=== PATIENT | female | born 1955 | race Caucasian/White ===

== ENCOUNTER 2017-12-15 20:11 | Inpatient (IN) ==
[2017-12-15] MEDS ORDERED: ALBUTEROL/IPRATROPIUM 3 ML NEB RESP TX STA (20:55)
[2017-12-15] MEDS ORDERED: SODIUM CHLORIDE 0.9% 1,000 ML IV STA (20:55)
[2017-12-15 21:08] LABS: Basophils # 0.1 10*3/uL (0.0-0.2); Basophils % 0.6 % (0.0-0.8); Eosinophils # 0.1 10*3/uL (0.0-0.87); Eosinophils % 0.5 % (0.00-10.9); Hematocrit 39.4 VOL% (35.7-47.0); Hemoglobin 14.1 GM/DL (12.0-16.0); Immature Granulocytes % 0.5 %; Immature Granulocytes Absolute 0.06 #; Lymphocytes # 1.9 10*3/uL (1.4-4.0); Lymphocytes % 14.5 % (21.3-54.2); Mean Corpuscular HGB Conc 35.8 GM/DL (32-36); Mean Corpuscular Hemoglobin 31 PG (27-34); Mean Corpuscular Volume 85.5 FL (87-102); Mean Platelet Volume 10.4 FL (9.6-12.0); Monocytes # 0.9 10*3/uL (0.11-0.8); Monocytes % 6.9 % (1.7-12.7); Neutrophils # 10.2 10*3/uL (1.4-7.4); Platelet Count 408 T/CUMM (130-400); Red Blood Count 4.61 MC/CUMM (3.8-5.5); Red Cell Distribution Width 11.8 % (9.3-17.3); White Blood Count 13.2 T/CUMM (4-12)
[2017-12-15 21:15] LABS: Amorphous Crystals,Urine Occasional /HPF (Few); Apearance,Urine CLOUDY (Clear); Bacteria,Urine Occasional /HPF (Few); Bilirubin,Urine Small mg/dL (Negative); Blood, Urine Small mg/dL (Negative); Glucose,Urine (UA) Negative (Negative); Ketones,Urine 5 mg/dL (Negative); Mucus,Urine Many /LPF (Occasional); Nitrite,Urine Negative (Negative); Protein,Urine 100 MG/DL; RBC,Urine 4 /HPF (0-4); Squamous Epithelial Cell,Urine Many /HPF (0-10); Urine Color Yellow (Yellow); Urine Specific Gravity 1.029 (1.001-1.035); WBC,Urine 6 /HPF (0-6)
[2017-12-15 21:28] LABS: Albumin 3.2 G/DL (3.4-5.0); Bilirubin,Total 0.6 MG/DL (0.2-1.0); Calcium 8.9 MG/DL (8.5-10.1); Osmolality,Calculated 277.1 MOS/KG (273-304); Potassium 3.4 MMOL/L (3.5-5.1); Total Protein 7.1 G/DL (6.4-8.3)
[2017-12-15] MEDS ORDERED: cefTRIAXone 1,000 MG in SODIUM CHLORIDE 0.9% 100 ML IV STA (21:42)
[2017-12-15] MEDS ORDERED: cefTRIAXone 1,000 MG VIAL ONE (21:44)
[2017-12-15] MEDS ORDERED: diphenhydrAMINE CAP 25 MG CAPSULE PO PRN (22:15)
[2017-12-15] MEDS ORDERED: ONDANSETRON 4 MG/2 ML VIAL IV PRN (22:15)
[2017-12-15] MEDS ORDERED: ACETAMINOPHEN 325 MG TABLET PO PRN (22:15)
[2017-12-15] MEDS ORDERED: POLYETHYLENE GLYCOL POWDER 17 GM PACK PO PRN (22:33)
[2017-12-15] MEDS ORDERED: ALBUTEROL/IPRATROPIUM 3 ML NEB RESP TX PRN (22:33)
[2017-12-15] MEDS ORDERED: POTASSIUM CHLORIDE 10 MEQ TABLET PO ONE (22:33)
[2017-12-15 23:27] LABS: Thyroid Stimulating Hormone 2.17 uIU/ml (0.358-3.74)
[2017-12-15 23:48] LABS: Troponin I < 0.015 NG/ML (0.00-0.045)
[2017-12-16] MEDS: LEVOFLOXACIN INJ 500 MG in PREMIX 1 EACH IV SCH ×2 (00:17→22:27)
[2017-12-16] MEDS: MELATONIN 3 MG TABLET PO PRN (00:18)
[2017-12-16 05:40] LABS: Basophils # 0.1 10*3/uL (0.0-0.2); Basophils % 0.6 % (0.0-0.8); Eosinophils # 0.1 10*3/uL (0.0-0.87); Eosinophils % 0.5 % (0.00-10.9); Hematocrit 34.2 VOL% (35.7-47.0); Hemoglobin 12.4 GM/DL (12.0-16.0); Immature Granulocytes % 0.5 %; Immature Granulocytes Absolute 0.05 #; Lymphocytes # 1.6 10*3/uL (1.4-4.0); Lymphocytes % 17.6 % (21.3-54.2); Mean Corpuscular HGB Conc 36.3 GM/DL (32-36); Mean Corpuscular Hemoglobin 31 PG (27-34); Mean Corpuscular Volume 84.4 FL (87-102); Mean Platelet Volume 10.8 FL (9.6-12.0); Monocytes # 0.8 10*3/uL (0.11-0.8); Monocytes % 8.5 % (1.7-12.7); Neutrophils # 6.7 10*3/uL (1.4-7.4); Neutrophils % 72.3 % (38.7-73.9); Platelet Count 306 T/CUMM (130-400); Red Blood Count 4.05 MC/CUMM (3.8-5.5); Red Cell Distribution Width 11.9 % (9.3-17.3); White Blood Count 9.3 T/CUMM (4-12)
[2017-12-16 05:59] LABS: Albumin 2.7 G/DL (3.4-5.0); Bilirubin,Total 0.8 MG/DL (0.2-1.0); Calcium 8.5 MG/DL (8.5-10.1); Osmolality,Calculated 272.1 MOS/KG (273-304); Potassium 3.1 MMOL/L (3.5-5.1); Total Protein 6.8 G/DL (6.4-8.3)
[2017-12-16 06:00] LABS: Troponin I < 0.015 NG/ML (0.00-0.045)
[2017-12-16] MEDS ORDERED: POTASSIUM CHLORIDE 20 MEQ/15 ML UDCUP PO ONE (08:37)
[2017-12-16] MEDS ORDERED: POTASSIUM CHLORIDE RIDER 10 MEQ in PREMIX 1 EACH IV PRN (09:41)
[2017-12-16] MEDS ORDERED: POTASSIUM CHLORIDE 20 MEQ TABLET PO PRN (09:41)
[2017-12-16] MEDS: PANTOPRAZOLE 40 MG TABLET PO SCH (09:54)
[2017-12-16] MEDS: ASPIRIN CHEW 81 MG TABLET PO SCH (09:54)
[2017-12-16] MEDS: ENOXAPARIN 40 MG/0.4 ML SYRINGE SUBCUT SCH (09:54)
[2017-12-16] MEDS: GABAPENTIN 100 MG CAPSULE PO SCH (09:54)
[2017-12-16] MEDS: methylPREDNISolone SOD SUC 40 MG/1 ML VIAL IV SCH ×3 (10:00→22:21)
[2017-12-16] MEDS: DORNASE ALFA 2.5 MG/2.5 ML VIAL RESP TX SCH ×2 (10:37→19:12)
[2017-12-16] MEDS ORDERED: DEXTROSE 50% 25 GM/50 ML VIAL IV PRN (10:40)
[2017-12-16] MEDS ORDERED: GLUCAGON 1 MG VIAL IM PRN (10:40)
[2017-12-16 11:11] LABS: Troponin I < 0.015 NG/ML (0.00-0.045)
[2017-12-16] MEDS: ALBUTEROL/IPRATROPIUM 3 ML NEB RESP TX SCH ×2 (13:45→19:12)
[2017-12-16] MEDS: NICOTINE 21 MG/24 HR PATCH TRANSDERM SCH (14:20)
[2017-12-16] MEDS: INSULIN LISPRO 100 UNIT/ML SUBCUT SCH ×3 (17:37→20:55)
[2017-12-17] MEDS: ALBUTEROL/IPRATROPIUM 3 ML NEB RESP TX SCH ×4 (00:07→19:19)
[2017-12-17 04:22] LABS: Basophils % 0.1 % (0.0-0.8); Hematocrit 37.9 VOL% (35.7-47.0); Hemoglobin 13.5 GM/DL (12.0-16.0); Immature Granulocytes % 0.7 %; Immature Granulocytes Absolute 0.05 #; Lymphocytes # 0.5 10*3/uL (1.4-4.0); Lymphocytes % 6.8 % (21.3-54.2); Mean Corpuscular HGB Conc 35.6 GM/DL (32-36); Mean Corpuscular Hemoglobin 30 PG (27-34); Mean Corpuscular Volume 84.8 FL (87-102); Mean Platelet Volume 10.7 FL (9.6-12.0); Monocytes # 0.2 10*3/uL (0.11-0.8); Monocytes % 2.3 % (1.7-12.7); Neutrophils # 6.6 10*3/uL (1.4-7.4); Neutrophils % 90.1 % (38.7-73.9); Platelet Count 332 T/CUMM (130-400); Red Blood Count 4.47 MC/CUMM (3.8-5.5); Red Cell Distribution Width 11.9 % (9.3-17.3); White Blood Count 7.4 T/CUMM (4-12)
[2017-12-17 04:56] LABS: Calcium 9.3 MG/DL (8.5-10.1)
[2017-12-17 04:57] LABS: Osmolality,Calculated 285.5 MOS/KG (273-304); Potassium 3.6 MMOL/L (3.5-5.1)
[2017-12-17 05:00] LABS: Risk Ratio 4.39; VLDL CHOLESTEROL 14.6 MG/DL
[2017-12-17 05:04] LABS: Folate 7.2 NG/ML (5.4-24.0)
[2017-12-17] MEDS: methylPREDNISolone SOD SUC 40 MG/1 ML VIAL IV SCH ×3 (05:04→20:26)
[2017-12-17 05:07] LABS: % Iron Saturation 18.1 % (18-50); Ferritin 345.2 ng/ml (8-252)
[2017-12-17] MEDS: DORNASE ALFA 2.5 MG/2.5 ML VIAL RESP TX SCH ×2 (07:15→19:19)
[2017-12-17] MEDS ORDERED: ERGOCALCIFEROL 50,000 UNIT CAPSULE PO SCH (07:30)
[2017-12-17] MEDS: DOCUSATE SODIUM 100 MG CAPSULE PO PRN (08:31)
[2017-12-17] MEDS: PANTOPRAZOLE 40 MG TABLET PO SCH (08:31)
[2017-12-17] MEDS: guaiFENesin/DM ER 600-30 MG TABLET PO PRN (08:31)
[2017-12-17] MEDS: INSULIN LISPRO 100 UNIT/ML SUBCUT SCH ×5 (08:32→20:15)
[2017-12-17] MEDS: ASPIRIN CHEW 81 MG TABLET PO SCH (08:32)
[2017-12-17] MEDS: GABAPENTIN 100 MG CAPSULE PO SCH (08:32)
[2017-12-17] MEDS: FERROUS SULFATE 325 MG TABLET PO SCH ×3 (08:32→20:16)
[2017-12-17] MEDS: NICOTINE 21 MG/24 HR PATCH TRANSDERM SCH (08:33)
[2017-12-17] MEDS: ENOXAPARIN 40 MG/0.4 ML SYRINGE SUBCUT SCH (08:34)
[2017-12-17] MEDS: CHOLECALCIFEROL 5,000 UNIT TABLET PO SCH (08:34)
[2017-12-17] MEDS ORDERED: FOLIC ACID 1 MG TABLET PO SCH (21:00)
[2017-12-17] MEDS ORDERED: ATORVASTATIN 40 MG TABLET PO SCH (21:00)
[2017-12-17] MEDS ORDERED: INSULIN GLARGINE 100 UNIT/ML SUBCUT SCH (21:00)
[2017-12-17] MEDS: MELATONIN 3 MG TABLET PO PRN (21:43)
[2017-12-17] MEDS: LEVOFLOXACIN INJ 500 MG in PREMIX 1 EACH IV SCH (23:59)
[2017-12-18] MEDS: ALBUTEROL/IPRATROPIUM 3 ML NEB RESP TX SCH ×2 (00:12→07:42)
[2017-12-18] MEDS ORDERED: MORPHINE 4 MG/1 ML VIAL IV ONE (00:16)
[2017-12-18 05:23] VITALS: BP 133/83
[2017-12-18 06:08] LABS: Basophils % 0.1 % (0.0-0.8); Hematocrit 38.6 VOL% (35.7-47.0); Immature Granulocytes % 0.7 %; Immature Granulocytes Absolute 0.09 #; Lymphocytes # 1.2 10*3/uL (1.4-4.0); Lymphocytes % 9.8 % (21.3-54.2); Mean Corpuscular HGB Conc 33.7 GM/DL (32-36); Mean Corpuscular Hemoglobin 30 PG (27-34); Mean Corpuscular Volume 88.9 FL (87-102); Mean Platelet Volume 10.9 FL (9.6-12.0); Monocytes # 0.5 10*3/uL (0.11-0.8); Monocytes % 3.7 % (1.7-12.7); Neutrophils # 10.3 10*3/uL (1.4-7.4); Neutrophils % 85.7 % (38.7-73.9); Platelet Count 374 T/CUMM (130-400); Red Blood Count 4.34 MC/CUMM (3.8-5.5)
[2017-12-18 06:43] LABS: Calcium 9.5 MG/DL (8.5-10.1); Osmolality,Calculated 285.7 MOS/KG (273-304); Potassium 3.8 MMOL/L (3.5-5.1)
[2017-12-18] MEDS: DORNASE ALFA 2.5 MG/2.5 ML VIAL RESP TX SCH (07:42)
[2017-12-18] MEDS: NICOTINE 21 MG/24 HR PATCH TRANSDERM SCH (08:38)
[2017-12-18] MEDS: guaiFENesin/DM ER 600-30 MG TABLET PO PRN (08:38)
[2017-12-18] MEDS: ASPIRIN CHEW 81 MG TABLET PO SCH (08:39)
[2017-12-18] MEDS: PANTOPRAZOLE 40 MG TABLET PO SCH (08:39)
[2017-12-18] MEDS: ENOXAPARIN 40 MG/0.4 ML SYRINGE SUBCUT SCH (08:39)
[2017-12-18] MEDS: CHOLECALCIFEROL 5,000 UNIT TABLET PO SCH (08:39)
[2017-12-18] MEDS: FERROUS SULFATE 325 MG TABLET PO SCH (08:39)
[2017-12-18] MEDS: GABAPENTIN 100 MG CAPSULE PO SCH (08:39)
[2017-12-18] MEDS: DOCUSATE SODIUM 100 MG CAPSULE PO PRN (08:39)
[2017-12-18] MEDS: methylPREDNISolone SOD SUC 40 MG/1 ML VIAL IV SCH (08:40)
[2017-12-18] MEDS: INSULIN LISPRO 100 UNIT/ML SUBCUT SCH (08:51)
== END 2017-12-18 10:58 | disposition home or self-care (01) | DRG 194 ==
LOC: N.ED 20:11 → N.EDINP 20:11 → N.5E 23:15
PROVIDERS: ADMIT Internal Medicine; ATTEND Internal Medicine